=== PATIENT | male | born 1990 | race Caucasian/White ===

== ENCOUNTER 2017-11-30 21:55 | Emergency (ER) | payer OTHER ==
[2017-11-30 21:59] VITALS: BP 128/74; PULSE 75; TEMP 98.7; BMI 27.8
[2017-11-30] MEDS ORDERED: CYCLOBENZAPRINE HCL 10 MG TABLET (FP) PO ONE (22:10)
[2017-11-30] MEDS ORDERED: KETOROLAC TROMETHAMINE 60 MG/2 ML VIAL IM ONE (22:10)
--- NOTE | 2017-11-30 22:14 | PDOC ---
History of Present Illness - General Chief Complaint: Pain Stated Complaint: PAIN, ACUTE Time Seen by Provider: 11/30/17 22:09 History Source: Patient Exam Limitations: No Limitations - History of Present Illness Initial Comments: 11/30/17 22:11 27-year-old male presents to ED with complaints of mid back pain after trimming hedges on a ladder 2 days ago. Patient has been applying Vicks and heating pad with minimal improvement. Patient denies of dull pain, nausea, chest pain woke 72 weakness, or incontinence Occurred: reports: other (2 days) Severity: reports: moderate Pain Location: reports: back Method of Injury: Yes: other Modifying Factors: improves with: None Associated Symptoms (Fall): muscle spasms Past History - Travel Traveled outside of the country in the last 30 days: No - Past Medical History Home Medications: Ambulatory Orders NK [No Known Home Medication] 11/30/17 COPD: No - Suicide/Smoking/Psychosocial Hx Smoking History: Never smoked Have you smoked in the past 12 months: No Information on smoking cessation initiated: No Hx Alcohol Use: No Drug/Substance Use Hx: No Substance Use Type: None Patient Lives Alone: No Lives with/in: spouse/SO Review of Systems - Review of Systems Able to Perform ROS?: Yes Constitutional: No: Symptoms Reported HEENTM: No: Symptoms Reported Respiratory: No: Symptoms reported Cardiac (ROS): No: Symptoms Reported : No: Frequency Musculoskeletal: Yes: Back Pain Integumentary: No: Symptoms Reported Neurological: No: Symptoms reported *Physical Exam - Vital Signs Last Vital Signs Temp Pulse Resp BP Pulse Ox 98.7 F 75 18 128/74 99 11/30/17 21:57 11/30/17 21:57 11/30/17 21:57 11/30/17 21:57 11/30/17 21:57 - Physical Exam General Appearance: Yes: Nourished, Appropriately Dressed. No: Apparent Distress Gastrointestinal/Abdominal: positive: Soft. negative: Tenderness Musculoskeletal: positive: Other (tenderness to right thoracic area at mid scapular line/ T10-T11 level). negative: CVA Tenderness, Vertebral Tenderness ( no midline tenderness) Extremity: positive: Normal Inspection Integumentary: positive: Normal Color, Warm, Moist Neurologic: positive: Normal Mood/Affect, Motor Strength 5/5 Medical Decision Making - Medical Decision Making 11/30/17 22:13 Patient with mid back pain worsened with movement over the past days after doing housework. Patient works in [employer] which he states is aggravated his symptoms. Patient ordered for Toradol Flexeril likely due to muscle spasm be discharged home with Motrin and Flexeril. *DC/Admit/Observation/Transfer Diagnosis at time of Disposition: Mid back pain on right side - Discharge Dispostion Disposition: HOME Condition at time of disposition: Improved - Referrals - Patient Instructions Printed Discharge Instructions: DI for Back Spasm Additional Instructions: Please take medication as prescribed and avoid movements that trigger discomfort. - Post Discharge Activity Forms/Work/School Notes: Back to Work
== END 2017-11-30 22:28 | disposition home or self-care (01) ==
LOC: JERFT 21:55
PROC: 3E0233Z Introduction of Anti-inflammatory into Muscle, Percutaneous Approach (ICD-10-PCS; principal; 2017-11-30)
DX: M54.6 Pain in thoracic spine (principal); X50.0XXA Overexertion from strenuous movement or load, initial encounter; Y93.H2 Activity, gardening and landscaping; Y92.89 Other specified places as the place of occurrence of the external cause; Y99.8 Other external cause status
CPT/HCPCS: 99281-25